=== PATIENT | male | born 1965 | race Caucasian/White ===

== ENCOUNTER 2017-03-09 08:20 | Day surgery (SDC) | payer OTHER ==
[2017-03-09] MEDS ORDERED: LIDOCAINE HCL/PF 2% SDV 5ML VIAL ONE (08:57)
[2017-03-09] MEDS ORDERED: PROPOFOL 20 ML ONE ×2 (08:57)
[2017-03-09 08:59] VITALS: BMI 28.2
[2017-03-09 09:39] VITALS: TEMP 97.8
[2017-03-09 10:02] VITALS: PULSE 67
[2017-03-09 10:21] VITALS: BP 106/62
--- NOTE | 2017-03-10 14:04 | PATH ---
Surgical Pathology Report Patient Name: ZOEY CAMPOS [facility]. Rec. #: [id number] /Age/Gender: 1965 (Age: 52) / M Account: [id number] Location: [facility]-ENDOSCOPY Taken: 03/09/2017 Received: 03/09/2017 Reported: 03/10/2017 Physicians: Vega Romero M.D. Specimen(s) Received BX HEPATIC FLEXURE Clinical History Screening Colon polyp, hemorrhoids Final Diagnosis COLON, HEPATIC FLEXURE, POLYP, POLYPECTOMY: SESSILE SERRATED ADENOMA. Electronically Signed Cristhian Parker M.D. Gross Description Received in formalin, labeled "hepatic flexure polyp" is a salguero, irregular portion of soft tissue measuring 0.7 cm in greatest dimension. The specimen is submitted in toto in one cassette. 03/09/201703/09/2017
== END 2017-03-09 10:21 | disposition home or self-care (01) ==
LOC: JASU-ENDO 08:20
PROVIDERS: ATTEND Internal Medicine Gastroenterology
PROC: 0DBK8ZX Excision of Ascending Colon, Via Natural or Artificial Opening Endoscopic, Diagnostic (ICD-10-PCS; principal; 2017-03-09 09:00)
DX: Z12.11 Encounter for screening for malignant neoplasm of colon (principal); D12.2 Benign neoplasm of ascending colon; K64.8 Other hemorrhoids
CPT/HCPCS: 88305-TC